=== PATIENT | male | born 1955 | race Asian ===

== ENCOUNTER 2020-03-16 20:56 | Inpatient (IN) | payer OTHER ==
[~2020-03-16] VITALS: Ht 167.6 cm; Wt 84.6 kg
[2020-03-16] MEDS: HumaLOG INSULIN (NovoLOG) PER UNIT SC SCH (21:00)
[2020-03-16] MEDS ORDERED: IBUPROFEN 600MG TAB PO ONE (21:45)
[2020-03-16 21:50] LABS: ABG BASE EXCESS -3.2 (-2.0-2.0); ABG HCO3 19.4 MEQ/L (22.0-26.0); ABG O2 SATURATION 94.5 % (95.0-99.0); ABG PARTIAL PRESSURE O2 68.4 mmHg (75.0-100.0); ABG STANDARD HCO3 21.8 MEQ/L (22.0-26.0); ABG TOTAL CO2 20.2 MEQ/L (23.0-31.0); ABG pH (ARTERIAL) 7.458 UNITS (7.350-7.450)
[2020-03-16 21:55] LABS: BASO % 0.2 % (0.0-1.0); HEMATOCRIT 41.9 % (42.0-52.0); HEMOGLOBIN 13.1 g/dl (13.5-17.5); LYMPH # 0.7 10^3/uL (1.5-5.0); LYMPH % 6.3 % (24.0-44.0); MEAN CORPUSCULAR HGB CONC 31.3 g/dl (32.0-36.5); MEAN CORPUSCULAR VOLUME 89.5 fl (80.0-96.0); MONO # 0.4 10^3/uL (0.0-0.8); MONO % 3.6 % (0.0-5.0); NEUTROPHILS # 10.6 10^3/uL (1.5-8.5); NEUTROPHILS % 89.2 % (36.0-66.0); PLATELET COUNT, AUTOMATED 368 10^3/uL (150-450); RED BLOOD COUNT 4.68 10^6/uL (4.30-6.10); WHITE BLOOD COUNT 11.8 10^3/uL (4.0-10.0)
[2020-03-16] MEDS ORDERED: ACET-897 PO (22:12)
--- NOTE | 2020-03-16 22:17 | REPVR ---
PROCEDURE INFORMATION: Exam: XR Chest, 1 View Exam date and time: 03/16/2020 9:42 PM Age: 64 years old Clinical indication: Cough and dyspnea; Additional info: Dyspnea/cough TECHNIQUE: Imaging protocol: XR of the chest Views: 1 view. COMPARISON: No relevant prior studies available. FINDINGS: Lungs: Hypoexpanded lungs with bibasilar atelectasis and suspected scattered infiltrate. Pleural space: Unremarkable. No pleural effusion. No pneumothorax. Heart/Mediastinum: Unremarkable. No cardiomegaly. Bones/joints: Unremarkable. IMPRESSION: Hypoexpanded lungs with bibasilar atelectasis and suspected scattered infiltrate. Electronically signed by: Adrian Kwong On 03/16/2020 22:17:55 PM
[2020-03-16 22:34] LABS: BLOOD UREA NITROGEN 15 MG/DL (7-18); CALCIUM LEVEL 9.5 MG/DL (8.8-10.2); CARBON DIOXIDE LEVEL 27 MEQ/L (21-32); CHLORIDE LEVEL 102 MEQ/L (98-107); GLOMERULAR FILTRATION RATE > 60.0 (>49); GLUCOSE, FASTING 157 MG/DL (70-100); POTASSIUM SERUM 4.2 MEQ/L (3.5-5.1); SODIUM LEVEL 134 MEQ/L (136-145)
[2020-03-16 22:35] LABS: ALBUMIN 3.1 GM/DL (3.2-5.2); ALT/SGPT 39 U/L (12-78); BILIRUBIN,DIRECT 0.2 MG/DL (0.0-0.2); BILIRUBIN,TOTAL 0.7 MG/DL (0.2-1.0); CK-MB VALUE MASS < 1.0 NG/ML (<3.6); CPK CREATINE PHOSPHOKINASE 88 U/L (39-308); FERRITIN 588 NG/ML (26-388); LDH LACTATE DEHYDROGENASE 324 U/L (87-241); MAGNESIUM LEVEL 2.2 MG/DL (1.8-2.4); MB/CK RELATIVE INDEX 1.14 (< OR =4); NT-PRO BNP 200 PG/ML (<125); THYROID STIMULATING HORMONE 0.788 uIU/ML (0.358-3.740); TOTAL PROTEIN 8.4 GM/DL (6.4-8.2); TROPONIN I < 0.02 NG/ML (< 0.10)
[2020-03-16] MEDS ORDERED: dexameTHASONE 20MG/5ML VIAL (J1100 PER 1MG) IV ONE (22:45)
[2020-03-17] MEDS ORDERED: DEXTROSE 50% 50 ML SYRINGE IV PRN (01:30)
[2020-03-17] MEDS ORDERED: GLUCOSE 4GM CHEW TABLET PO PRN (01:30)
[2020-03-17] MEDS ORDERED: GLUCAGON INJ 1MG VIAL SC PRN (01:30)
--- OUTSIDE RECORDS SUMMARY | 2020-03-17 01:32 | CCD ---
Author Author [facility] Address Unknown Phone Unavailable Support Name Relationship Address Phone LLOYD GARCIA Next Of Kin [address] [place], [place] [id number] Re-disclosure Warning The records that you are about to access may contain information from federally-assisted alcohol or drug abuse programs. If such information is present, then the following federally mandated warning applies: This information has been disclosed to you from records protected by federal confidentiality rules (42 CFR part 2). The federal rules prohibit you from making any further disclosure of this information unless further disclosure is expressly permitted by the written consent of the person to whom it pertains or as otherwise permitted by 42 CFR part 2. A general authorization for the release of medical or other information is NOT sufficient for this purpose. The Federal rules restrict any use of the information to criminally investigate or prosecute any alcohol or drug abuse patient.The records that you are about to access may contain highly sensitive health information, the redisclosure of which is protected by Article 27-F of the [facility] Public Health law. If you continue you may have access to information: Regarding HIV / AIDS; Provided by facilities licensed or operated by the [facility] Office of Mental Health; or Provided by the [facility] Office for People With Developmental Disabilities. If such information is present, then the following [facility] mandated warning applies: This information has been disclosed to you from confidential records which are protected by state law. State law prohibits you from making any further disclosure of this information without the specific written consent of the person to whom it pertains, or as otherwise permitted by law. Any unauthorized further disclosure in violation of state law may result in a fine or care home sentence or both. A general authorization for the release of medical or other information is NOT sufficient authorization for further disc losure. Insurance Providers Payer name Policy type / Coverage type Policy ID Covered green party ID Covered green party's relationship to batres Policy Batres Plan Information AYSHA [id number]
--- NOTE | 2020-03-17 01:53 | HPEPDOC ---
[facility] Medical History & Physical Date of Admission Mar 17, 2020 Date of Service: Mar 17, 2020 Other Provider No PCP yet Attending Physician: CUONG SAENZ MD History and Physical CHIEF COMPLAINT: SOB HISTORY OF PRESENT ILLNESS: Patient is a 64 year old male who presented to [facility] ED on 03/16/2020 with ~a 7 day history of fevers, cough, and progressively worsening shortness of breath. History is limited and aided by his son over the phone and through a manager online used in the emergency department. He continued to have persistent fevers in spite of tylenol use, his family had a home pulse oximeter that showed desaturations so he was tested at an urgent care today and it was positive for COVID so he was sent to the emergency department for further evaluation. While in the ED he was saturating well on room air, but desaturated to the mid 80s and became symptomatically short of breath and tachycardic with mild exertion (ambulation) so the decision was made to admit the patient for overnight monitoring and observation. 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 No tobacco use, alcohol use, or illicit drug use. FAMILY HISTORY: Brother with high cholesterol ALLERGIES: Please see below. REVIEW OF SYSTEMS: Constitutional: Denies chills, night sweats, or recent unexpected weight change HEENT: Denies Headaches, head trauma, No visual changes or eye pain, denies nose bleeds, or difficulty swallowing Cardiovascular: Denies chest pain, palpitations, or orthopnea Respiratory: Denies wheezing, admits to dry non-productive cough, SOB GI: Denies nausea, vomiting, abdominal pain, diarrhea or constipation : Denies pain with urination or frequency Musculoskeletal: Denies joint pain or swelling Neuro / Psych: Denies muscle weakness or sensory loss Skin: Denies skin rashes HOME MEDICATIONS: Please see below. PHYSICAL EXAMINATION: VITAL SIGNS: See below GENERAL: Well appearing male sitting upright in bed in no acute distress HEENT: NC, AT, EOMI, no scleral icterus, moist mucous membranes, no pharyngeal erythema. NECK: No cervical or supraclavicular lymphadenopathy. No JVD. CARDIOVASCULAR: RRR, normal S1 and S2. No murmurs, gallops, rubs. LUNGS: CTAB with full breath sounds, no wheezes, crackles, or rhonchi. ABDOMEN: Soft, non-tender, non-distended, bowel sounds present. No hepatosplenomegaly. No masses or eccymosis. No CVA tenderness. EXTREMITIES: No swelling or edema SKIN: No rashes or skin changes. NEUROLOGICAL: No focal or sensory deficits. CN II-XII grossly intact. PSYCHIATRIC: Normal mood and affect. LABORATORY DATA: See below. IMAGIN03/16/20 CXR: "Hypoexpanded lungs with bibasilar atelectasis and suspected scattered infiltrate. " MICROBIOLOGY: Please see below. ASSESSMENT/PLAN: Patient is a 64 year old male with a week long history of worsening SOB admitted with concern for hypoxia secondary to COVID pneumonia. #. COVID-19 Pneumonia -Patient with mild disease, will continue to monitor oxygen saturations and titrate per protocol, he is comfortable currently on room air, son updated of his condition. -Dexamethasone daily, decadron already given in ED. -Trending daily inflammatory markers. -Remdesivir not indicated at this stage in disease course, day 7-8 of illness. #. Hypoxia -Given his hypoxia earlier in his ED course with accompanying tachycardia, elevated D-dimer, and comorbid pneumonia, will obtain bilateral LE U/S, his tachycardia resolved once I had seen patient. #. Type 2 Diabetes -Patient states he is only on glipizide at home -Sliding scale insulin #. Hypertension -Patient/son states he is on Amlodipine 5 mg, will continue home med DVT prophylaxis: Half dose prophylactic lovenox Disposition: At least 2 midnights pending clinical improvement. Vital Signs Vital Signs Date Time Temp Pulse Resp B/P (MAP) Pulse Ox O2 Delivery O2 Flow Rate FiO2 03/17/20 01:16 92 18 137/77 (97) 93 Room Air 03/16/20 21:04 100.2 Laboratory Data Labs 24H Laboratory Tests 2 03/16/20 21:28: Immature Granulocyte % (Auto) 0.7, Neutrophils (%) (Auto) 89.2H, Lymphocytes (%) (Auto) 6.3L, Monocytes (%) (Auto) 3.6, Eosinophils (%) (Auto) 0.0, Basophils (%) (Auto) 0.2, Neutrophils # (Auto) 10.6H, Lymphocytes # (Auto) 0.7L, Monocytes # (Auto) 0.4, Eosinophils # (Auto) 0.0, Basophils # (Auto) 0.0, Nucleated Red Blood Cells % (auto) 0.0, Anion Gap 5L, Glomerular Filtration Rate > 60.0, Calcium Level 9.5, Magnesium Level 2.2, Ferritin 588H, Total Bilirubin 0.7, Direct Bilirubin 0.2, Aspartate Amino Transf (AST/SGOT) 31, Alanine Aminotransferase (ALT/SGPT) 39, Alkaline Phosphatase 125H, Lactate Dehydrogenase 324H, Total Creatine Kinase 88, Creatine Kinase MB < 1.0, Creatine Kinase MB Relative Index 1.14, Troponin I < 0.02, C-Reactive Protein, Quantitative 37.30H, PW-Xnq-T-Type Natriuretic Peptide 200H, Total Protein 8.4H, Albumin 3.1L, Albumin/Globulin Ratio 0.6, Thyroid Stimulating Hormone (TSH) 0.788 03/16/20 21:34: Blood Gas Bicarbonate Standard 21.8L, Arterial Blood pH 7.458H, Arterial Blood Partial Pressure CO2 28.0L, Arterial Blood Partial Pressure O2 68.4L, Arterial Blood Total CO2 20.2L, Arterial Blood HCO3 19.4L, Arterial Blood Base Excess - 3.2L, Arterial Blood Oxygen Saturation 94.5L 03/16/20 21:46: D-Dimer, Quantitative 1898.18H, Lactic Acid Level 1.3 CBC/BMP Laboratory Tests 03/16/20 21:28 Microbiology Microbiology 03/16/20 Blood Culture, Received Pending 03/16/20 Blood Culture, Received Pending Home Medications Scheduled PRN Acetaminophen (Tylenol Extra Strength) 500 Mg Tablet, 500 MG PO Q6H PRN for PAIN / FEVER Allergies Coded Allergies: No Known Allergies (Verified Allergy, Unknown, 03/16/20) GME ATTESTATION GME ATTESTATION My faculty preceptor for this patient encounter was physically present during the encounter and was fully available. All aspects of the patient interview, examination, medical decision making process, and medical care plan development were reviewed and approved by the faculty preceptor. The faculty preceptor is aware and concurs with the plan as stated in the body of this note and will attest to such by his/her cosignature. CAROL BETH DO Mar 17, 2020 01:53
--- NOTE | 2020-03-17 03:03 | REPVR ---
PROCEDURE INFORMATION: Exam: US Duplex Lower Extremity Veins, Bilateral Exam date and time: 03/17/2020 2:51 AM Age: 64 years old Clinical indication: Other: SOB; Additional info: Tachycardia, SOB, dvt rule out TECHNIQUE: Imaging protocol: Real-time duplex ultrasound of the extremities with 2-D morales scale, color Doppler flow and spectral waveform analysis with image documentation. Complete exam focused on the bilateral lower extremity veins. COMPARISON: No relevant prior studies available. FINDINGS: Right deep veins: Unremarkable. The common femoral, femoral, proximal profunda femoral and popliteal veins are patent without thrombus. Normal Doppler waveforms. Normal compressibility and/or augmentation response. Right superficial veins: Saphenofemoral junction is patent without thrombus. Left deep veins: Unremarkable. The common femoral, femoral, proximal profunda femoral and popliteal veins are patent without thrombus. Normal Doppler waveforms. Normal compressibility and/or augmentation response. Left superficial veins: Saphenofemoral junction is patent without thrombus. Soft tissues: Unremarkable. IMPRESSION: No evidence of deep vein thrombosis. Electronically signed by: Adrian Kwong On 03/17/2020 03:03:21 AM
[2020-03-17 06:03] LABS: ABG BASE EXCESS -0.3 (-2.0-2.0); ABG HCO3 24.2 MEQ/L (22.0-26.0); ABG O2 SATURATION 95.8 % (95.0-99.0); ABG PARTIAL PRESSURE O2 78.4 mmHg (75.0-100.0); ABG STANDARD HCO3 24.2 MEQ/L (22.0-26.0); ABG TOTAL CO2 25.4 MEQ/L (23.0-31.0)
[2020-03-17] MEDS ORDERED: cefTRIAXone SOD 1 GM in D5W MINI-BAG PLUS 50 ML IV ONE (08:00)
[2020-03-17] MEDS ORDERED: DOXYCYCLINE HYCLATE 100 MG in D5W MINI-BAG PLUS 100 ML IV ONE (09:00)
--- NOTE | 2020-03-17 09:04 | ECGEPIP ---
[facility] - ED Test Date: 2020-03-16 Pat Name: LEXI GARCIA Department: Room: [facility] Gender: Male Performing Artist: JORY : 1955 Requested By: BENSON Chaudhry Order Number: [id number] Reading MD: Elza Rubin Measurements Intervals [place] Rate: 117 P: 26 UT: 116 QRS: -13 QRSD: 91 T: 7 QT: 340 QTc: 476 Interpretive Statements SINUS TACHYCARDIA WITH SHORT UT INTERVAL VOLTAGE CRITERIA FOR LVH NONSPECIFIC T-WAVE ABNORMALITY No prior Electronically Signed on 03-17-2020 9:04:09 EST by Elza Rubin
[2020-03-17] MEDS: dexameTHASONE 4 MG/ML 1ML VIAL (J1100 PER 1MG) IV SCH (09:38)
[2020-03-17] MEDS: HumaLOG INSULIN (NovoLOG) PER UNIT SC SCH ×4 (09:40→20:46)
[2020-03-17] MEDS: amLODIPine 5 MG TAB PO SCH (09:40)
[2020-03-17] MEDS: ENOXAPARIN 40MG/0.4ML SYRINGE (J1650 PER 10MG) SC SCH ×2 (09:41→21:30)
[2020-03-17 10:36] LABS: BASO % 0.2 % (0.0-1.0); HEMATOCRIT 40.6 % (42.0-52.0); HEMOGLOBIN 12.6 g/dl (13.5-17.5); LYMPH # 0.5 10^3/uL (1.5-5.0); LYMPH % 5.2 % (24.0-44.0); MEAN CORPUSCULAR HEMOGLOBIN 27.8 pg (27.0-33.0); MEAN CORPUSCULAR VOLUME 89.6 fl (80.0-96.0); MONO # 0.1 10^3/uL (0.0-0.8); MONO % 0.9 % (0.0-5.0); NEUTROPHILS # 9.4 10^3/uL (1.5-8.5); NEUTROPHILS % 93.1 % (36.0-66.0); PLATELET COUNT, AUTOMATED 368 10^3/uL (150-450); RED BLOOD COUNT 4.53 10^6/uL (4.30-6.10); WHITE BLOOD COUNT 10.1 10^3/uL (4.0-10.0)
[2020-03-17 10:48] LABS: INR 1.09; PROTHROMBIN TIME 14.3 SECONDS (12.5-14.3)
[2020-03-17 10:50] LABS: PARTIAL THROMBOPLASTIN TIME 45.4 SECONDS (24.2-38.5)
[2020-03-17 11:34] LABS: ALBUMIN 2.7 GM/DL (3.2-5.2); ALT/SGPT 36 U/L (12-78); BILIRUBIN,DIRECT 0.2 MG/DL (0.0-0.2); BILIRUBIN,TOTAL 0.8 MG/DL (0.2-1.0); BLOOD UREA NITROGEN 19 MG/DL (7-18); CALCIUM LEVEL 8.9 MG/DL (8.8-10.2); CARBON DIOXIDE LEVEL 26 MEQ/L (21-32); CHLORIDE LEVEL 102 MEQ/L (98-107); CREATININE FOR GFR 0.94 MG/DL (0.70-1.30); FERRITIN 631 NG/ML (26-388); GLOMERULAR FILTRATION RATE > 60.0 (>49); GLUCOSE, FASTING 341 MG/DL (70-100); NT-PRO BNP 129 PG/ML (<125); POTASSIUM SERUM 4.6 MEQ/L (3.5-5.1); SODIUM LEVEL 134 MEQ/L (136-145); TOTAL PROTEIN 6.7 GM/DL (6.4-8.2)
[2020-03-17 13:00] VITALS: O2SAT 87
[2020-03-17 13:11] VITALS: BP 139/70
[2020-03-17 14:28] LABS: TROPONIN I < 0.02 NG/ML (< 0.10)
--- NOTE | 2020-03-17 15:19 | IPNPDOC ---
Text Note Date of Service The patient was seen on 03/17/20. NOTE Subjective: Patient is a 62-year-old male with a PMHx DM2, HTN who presented to the ER with fevers / cough / progressive SOB for 7 days. Patient comes to urgent care where he had tested Positive on 03/16/2020. Patient was noted to be hypoxic, was sent to the emergency room for further evaluation. Patient was admitted to the hospital service for further evaluation and treatment. Patient was seen and examined at the bedside. Patient reports that he feels relatively better than he did yesterday. Denies any chest pain or palpitations. Reports a mild cough. Denies any nausea, vomiting, abdominal pain, diarrhea, or urinary discomfort. Patient speaks Guamanian and Gujarati; I have conversed with him in both languages. Objective: Vitals (See below) General: Lying in bed, no acute distress, comfortable, AAOx3 HEENT: NC, AT CVS: RRR, +S1S2 Lungs: Fair air entry b/l, -w/r/r Abdomen: Soft, ND, NT Extremities: - Edema, - Calf tenderness Imaging: CXR 03/16: Hypoexpanded lungs with bibasilar atelectasis and suspected scattered infiltrate. Duplex US 03/16: No evidence of deep vein thrombosis. Assessment and plan: Acute hypoxic respiratory failure - 2/2 COVID-19 Pneumonia - Currently patient reports that he feels better than he did yesterday - Saturating well on 1 L nasal cannula oxygen - Inflammatory markers noted to be elevated, however, have been trending down - Imaging noted above - Will continue with dexamethasone (Day #2) - Will start antibiotics with ceftriaxone and doxycycline (Day#1); will trend pro-calcitonin DM2 - c/w ISS HTN - c/w Amlodipine GI prophylaxis - c/w DVT prophylaxis - c/w Lovenox weight-based prophylactic dosing Disposition: - Called and discussed case with his son Alexandra Garcia Osmani ECHAVARRIA I+O Osmani ECHAVARRIA I+O Laboratory Tests 03/16/20 21:28 03/17/20 10:20 Vital Signs Date Time Temp Pulse Resp B/P (MAP) Pulse Ox O2 Delivery O2 Flow Rate FiO2 03/17/20 13:11 97.7 90 17 139/70 (93) 91 Room Air 03/17/20 09:01 2.0 RACHEL GARCIA MD Mar 17, 2020 15:19
[2020-03-17 16:00] VITALS: O2SAT 93
[2020-03-17 20:47] VITALS: BP 132/65
[2020-03-17] MEDS ORDERED: ACETAMINOPHEN TAB 650MG DOSE (2X325MG) PO PRN (21:15)
[2020-03-17] MEDS: DOXYCYCLINE HYCLATE 100 MG in D5W MINI-BAG PLUS 100 ML IV SCH (21:30)
[2020-03-18 04:00] VITALS: BP 117/56
[2020-03-18 07:59] LABS: BASO % 0.2 % (0.0-1.0); HEMATOCRIT 39.9 % (42.0-52.0); LYMPH # 0.7 10^3/uL (1.5-5.0); LYMPH % 3.5 % (24.0-44.0); MEAN CORPUSCULAR HGB CONC 32.6 g/dl (32.0-36.5); MEAN CORPUSCULAR VOLUME 89.1 fl (80.0-96.0); MONO # 0.8 10^3/uL (0.0-0.8); MONO % 3.8 % (0.0-5.0); NEUTROPHILS # 18.1 10^3/uL (1.5-8.5); NEUTROPHILS % 91.5 % (36.0-66.0); PLATELET COUNT, AUTOMATED 439 10^3/uL (150-450); RED BLOOD COUNT 4.48 10^6/uL (4.30-6.10); WHITE BLOOD COUNT 19.8 10^3/uL (4.0-10.0)
[2020-03-18 08:00] VITALS: BP 119/61; O2SAT 92
[2020-03-18 08:13] LABS: INR 1.07; PROTHROMBIN TIME 14.1 SECONDS (12.5-14.3)
[2020-03-18 08:14] LABS: PARTIAL THROMBOPLASTIN TIME 41.2 SECONDS (24.2-38.5)
[2020-03-18 08:16] LABS: D-DIMER QUANT 770.17 ng/ml (<500)
[2020-03-18 08:29] LABS: ALT/SGPT 42 U/L (12-78); BLOOD UREA NITROGEN 24 MG/DL (7-18); CALCIUM LEVEL 8.9 MG/DL (8.8-10.2); CARBON DIOXIDE LEVEL 26 MEQ/L (21-32); CHLORIDE LEVEL 102 MEQ/L (98-107); CREATININE FOR GFR 0.85 MG/DL (0.70-1.30); GLOMERULAR FILTRATION RATE > 60.0 (>49); GLUCOSE, FASTING 227 MG/DL (70-100); POTASSIUM SERUM 4.9 MEQ/L (3.5-5.1); SODIUM LEVEL 135 MEQ/L (136-145)
[2020-03-18 08:30] LABS: ALBUMIN 2.7 GM/DL (3.2-5.2); BILIRUBIN,DIRECT 0.2 MG/DL (0.0-0.2); BILIRUBIN,TOTAL 0.5 MG/DL (0.2-1.0); FERRITIN 665 NG/ML (26-388); NT-PRO BNP 201 PG/ML (<125); TOTAL PROTEIN 6.4 GM/DL (6.4-8.2)
[2020-03-18] MEDS ORDERED: FLUBLOK(EGG FREE)(QUAD)INFLUENZA VACC 0.5ML SYRINGE 18YRS & OLDER IM ONE (09:00)
[2020-03-18] MEDS: HumaLOG INSULIN (NovoLOG) PER UNIT SC SCH ×4 (09:16→21:00)
[2020-03-18] MEDS: ENOXAPARIN 40MG/0.4ML SYRINGE (J1650 PER 10MG) SC SCH ×2 (09:19→21:09)
[2020-03-18] MEDS: dexameTHASONE 4 MG/ML 1ML VIAL (J1100 PER 1MG) IV SCH (09:19)
[2020-03-18] MEDS: cefTRIAXone SOD 1 GM in D5W MINI-BAG PLUS 50 ML IV SCH (09:20)
[2020-03-18] MEDS: amLODIPine 5 MG TAB PO SCH (09:21)
[2020-03-18] MEDS: DOXYCYCLINE HYCLATE 100 MG in D5W MINI-BAG PLUS 100 ML IV SCH ×2 (09:22→21:10)
--- NOTE | 2020-03-18 11:54 | IPNPDOC ---
Text Note Date of Service The patient was seen on 03/18/20. NOTE Subjective: Patient is a 62-year-old male with a PMHx DM2, HTN who presented to the ER with fevers / cough / progressive SOB for 7 days. Patient comes to urgent care where he had tested Positive on 03/16/2020. Patient was noted to be hypoxic, was sent to the emergency room for further evaluation. Patient was admitted to the hospital service for further evaluation and treatment. Patient was seen and examined at the bedside. Patient reports that his night was uneventful. Currently patient is on 2 L nasal cannula oxygen. He denies any chest pain. Does report a mild cough. Denies any nausea, vomiting, abdominal pain, diarrhea, or urinary discomfort. Objective: Vitals (See below) General: Lying in bed, no acute distress, comfortable, awake, alert and oriented 3 HEENT: NC, AT CVS: +S1S2 Lungs: Fair air entry b/l, no appreciable wheezing, rhonchi or rales Abdomen: Soft, nondistended and nontender Extremities: Lower extremities are without any edema, - Calf tenderness Imaging: CXR 03/16: Hypoexpanded lungs with bibasilar atelectasis and suspected scattered infiltrate. Duplex US 03/16: No evidence of deep vein thrombosis. Assessment and plan: Acute hypoxic respiratory failure - 2/2 COVID-19 Pneumonia - Patient reports a mild cough - Patient is currently on 2 L of nasal cannula oxygen - Inflammatory markers has been trending down - Imaging noted above - c/w dexamethasone (Day #3) - c/w antibiotics with ceftriaxone and doxycycline (Day#2); will trend pro- calcitonin DM2 - c/w ISS HTN - c/w Amlodipine GI prophylaxis - c/w DVT prophylaxis - c/w Lovenox weight-based prophylactic dosing Disposition: - Called and updated son Alexandra Garcia VS,Osmani, I+O VS, Samuelbone, I+O Laboratory Tests 03/18/20 07:00 Vital Signs Date Time Temp Pulse Resp B/P (MAP) Pulse Ox O2 Delivery O2 Flow Rate FiO2 03/18/20 09:21 104 121/66 03/18/20 08:00 23 94 Nasal Cannula 2.0 03/18/20 04:00 99.8 I&O- Last 24 Hours up to 6 AM 03/18/20 05:59 Intake Total 500 ml Output Total 200 ml Balance 300 ml RACHEL GARCIA MD Mar 18, 2020 11:54
[2020-03-18 12:00] VITALS: BP 126/69; O2SAT 92
[2020-03-18 15:08] LABS: MYCOPLASMA PNEUMONIAE IgG <100 U/mL (0-99); MYCOPLASMA PNEUMONIAE IgM <770 U/mL (0-769)
[2020-03-18 16:00] VITALS: O2SAT 93
[2020-03-18 20:00] VITALS: O2SAT 93
[2020-03-18 21:03] VITALS: BP 129/72
[2020-03-19] VITALS (7 sets, daily range): BP systolic 121–140; BP diastolic 70–75; O2SAT 92
[2020-03-19 06:34] LABS: BASO # 0.1 10^3/uL (0.0-0.2); BASO % 0.4 % (0.0-1.0); HEMATOCRIT 39.4 % (42.0-52.0); HEMOGLOBIN 12.5 g/dl (13.5-17.5); LYMPH % 6.5 % (24.0-44.0); MEAN CORPUSCULAR HEMOGLOBIN 27.9 pg (27.0-33.0); MEAN CORPUSCULAR HGB CONC 31.7 g/dl (32.0-36.5); MEAN CORPUSCULAR VOLUME 87.9 fl (80.0-96.0); MONO # 0.9 10^3/uL (0.0-0.8); MONO % 5.4 % (0.0-5.0); NEUTROPHILS # 13.5 10^3/uL (1.5-8.5); NEUTROPHILS % 84.6 % (36.0-66.0); PLATELET COUNT, AUTOMATED 467 10^3/uL (150-450); RED BLOOD COUNT 4.48 10^6/uL (4.30-6.10)
[2020-03-19 07:06] LABS: ALBUMIN 2.6 GM/DL (3.2-5.2); ALT/SGPT 41 U/L (12-78); BILIRUBIN,DIRECT 0.1 MG/DL (0.0-0.2); BILIRUBIN,TOTAL 0.5 MG/DL (0.2-1.0); BLOOD UREA NITROGEN 20 MG/DL (7-18); CALCIUM LEVEL 8.7 MG/DL (8.8-10.2); CARBON DIOXIDE LEVEL 26 MEQ/L (21-32); CHLORIDE LEVEL 100 MEQ/L (98-107); CREATININE FOR GFR 0.77 MG/DL (0.70-1.30); FERRITIN 586 NG/ML (26-388); GLOMERULAR FILTRATION RATE > 60.0 (>49); GLUCOSE, FASTING 197 MG/DL (70-100); NT-PRO BNP 256 PG/ML (<125); POTASSIUM SERUM 4.7 MEQ/L (3.5-5.1); SODIUM LEVEL 134 MEQ/L (136-145); TOTAL PROTEIN 6.6 GM/DL (6.4-8.2)
[2020-03-19 07:14] LABS: INR 1.05
[2020-03-19 07:15] LABS: PARTIAL THROMBOPLASTIN TIME 38.4 SECONDS (24.2-38.5)
[2020-03-19 07:18] LABS: D-DIMER QUANT 702.42 ng/ml (<500)
[2020-03-19] MEDS: cefTRIAXone SOD 1 GM in D5W MINI-BAG PLUS 50 ML IV SCH (09:15)
[2020-03-19] MEDS: dexameTHASONE 4 MG/ML 1ML VIAL (J1100 PER 1MG) IV SCH (09:15)
[2020-03-19] MEDS: HumaLOG INSULIN (NovoLOG) PER UNIT SC SCH ×4 (09:16→20:33)
[2020-03-19] MEDS: ENOXAPARIN 40MG/0.4ML SYRINGE (J1650 PER 10MG) SC SCH ×2 (09:17→20:46)
[2020-03-19] MEDS: amLODIPine 5 MG TAB PO SCH (09:19)
[2020-03-19] MEDS: DOXYCYCLINE HYCLATE 100 MG in D5W MINI-BAG PLUS 100 ML IV SCH ×2 (10:00→20:46)
--- NOTE | 2020-03-19 12:59 | IPNPDOC ---
Text Note Date of Service The patient was seen on 03/19/20. NOTE Subjective: Patient is a 62-year-old male with a PMHx DM2, HTN who presented to the ER with fevers / cough / progressive SOB for 7 days. Patient comes to urgent care where he had tested Positive on 03/16/2020. Patient was noted to be hypoxic, was sent to the emergency room for further evaluation. Patient was admitted to the hospital service for further evaluation and treatment. Patient was seen and examined at the bedside. Patient was seen on 4 L of nasal oxygen. He'll be working with physical therapy today. Reports a mild cough, but does not experience any significant shortness of breath. He denies any nausea, vomiting, abdominal pain, diarrhea, or urinary discomfort. I have provided patient with an incentive spirometer and shown him how to use it. Objective: Vitals (See below) General: Patient is sitting up in bed, appears to be comfortable, awake, alert and oriented 3 HEENT: NC, AT CVS: +S1S2 Lungs: Air entry appears to be fair bilaterally without any evidence of rhonchi, crackles or wheezing Abdomen: Abdomen remains soft without any distention or tenderness Extremities: No evidence of lower tremors edema Imaging: CXR 03/16: Hypoexpanded lungs with bibasilar atelectasis and suspected scattered infiltrate. Duplex US 03/16: No evidence of deep vein thrombosis. Assessment and plan: Acute hypoxic respiratory failure - 2/2 COVID-19 Pneumonia - Patient reports a mild cough - Patient is currently on 4 L of nasal cannula oxygen, however was able to be titrated down to 2 L after working with physical therapy - Inflammatory markers continue to improve - Imaging noted above - c/w dexamethasone (Day #4) - c/w antibiotics with ceftriaxone and doxycycline (Day#3); will calcitonin pending - Continue with physical therapy DM2 - c/w ISS HTN - c/w Amlodipine DVT prophylaxis - c/w Lovenox weight-based prophylactic dosing Disposition: - Called and updated son Alexandra Garcia VS,Osmani, I+O VSOsmani, I+O Laboratory Tests 03/19/20 05:48 Vital Signs Date Time Temp Pulse Resp B/P (MAP) Pulse Ox O2 Delivery O2 Flow Rate FiO2 03/19/20 12:32 92 Nasal Cannula 2.0 03/19/20 09:19 98.4 78 20 140/70 (93) I&O- Last 24 Hours up to 6 AM 03/19/20 06:00 Intake Total 960 ml Output Total 0 ml Balance 960 ml RACHEL GARCAI MD Mar 19, 2020 12:59
[2020-03-20] VITALS (9 sets, daily range): BP systolic 123–143; BP diastolic 66–78; O2SAT 55–94
[2020-03-20 06:55] LABS: HEMOGLOBIN 13.5 g/dl (13.5-17.5); MEAN CORPUSCULAR HEMOGLOBIN 28.7 pg (27.0-33.0); MEAN CORPUSCULAR HGB CONC 32.1 g/dl (32.0-36.5); MEAN CORPUSCULAR VOLUME 89.2 fl (80.0-96.0); PLATELET COUNT, AUTOMATED 505 10^3/uL (150-450); RED BLOOD COUNT 4.71 10^6/uL (4.30-6.10); WHITE BLOOD COUNT 11.9 10^3/uL (4.0-10.0)
[2020-03-20 07:14] LABS: INR 1.05; PROTHROMBIN TIME 13.9 SECONDS (12.5-14.3)
[2020-03-20 07:15] LABS: PARTIAL THROMBOPLASTIN TIME 35.3 SECONDS (24.2-38.5)
[2020-03-20 07:24] LABS: ALBUMIN 2.6 GM/DL (3.2-5.2); ALT/SGPT 50 U/L (12-78); BILIRUBIN,DIRECT 0.2 MG/DL (0.0-0.2); BILIRUBIN,TOTAL 0.5 MG/DL (0.2-1.0); BLOOD UREA NITROGEN 22 MG/DL (7-18); C REACTIVE PROTEIN QUANTITATIV 6.37 MG/DL (0.00-0.30); CARBON DIOXIDE LEVEL 30 MEQ/L (21-32); CHLORIDE LEVEL 98 MEQ/L (98-107); CREATININE FOR GFR 0.86 MG/DL (0.70-1.30); FERRITIN 604 NG/ML (26-388); GLOMERULAR FILTRATION RATE > 60.0 (>49); GLUCOSE, FASTING 220 MG/DL (70-100); NT-PRO BNP 126 PG/ML (<125); POTASSIUM SERUM 4.7 MEQ/L (3.5-5.1); SODIUM LEVEL 134 MEQ/L (136-145); TOTAL PROTEIN 6.7 GM/DL (6.4-8.2)
[2020-03-20 07:29] LABS: D-DIMER QUANT 798.17 ng/ml (<500)
[2020-03-20 08:38] LABS: ATYPICAL LYMPH 1 % (0-5); LYMPHOCYTES 7 % (16-44); METAMYELOCYTES 1 % (0-0); MONOCYTES 5 % (0-5); MYELOCYTES 3 % (0-0); NEUTROPHILS 82 % (28-66); PLATELET ESTIMATE INCREASED (NORMAL)
[2020-03-20 08:39] LABS: ANISOCYTOSIS 1+
[2020-03-20] MEDS: cefTRIAXone SOD 1 GM in D5W MINI-BAG PLUS 50 ML IV SCH (09:18)
[2020-03-20] MEDS: HumaLOG INSULIN (NovoLOG) PER UNIT SC SCH ×4 (09:22→21:00)
[2020-03-20] MEDS: DOXYCYCLINE HYCLATE 100 MG in D5W MINI-BAG PLUS 100 ML IV SCH (09:22)
[2020-03-20] MEDS: ENOXAPARIN 40MG/0.4ML SYRINGE (J1650 PER 10MG) SC SCH ×2 (09:22→21:04)
[2020-03-20] MEDS: amLODIPine 5 MG TAB PO SCH (09:24)
--- NOTE | 2020-03-20 15:58 | IPNPDOC ---
Text Note Date of Service The patient was seen on 03/20/20. NOTE Subjective: Patient is a 62-year-old male with a PMHx DM2, HTN who presented to the ER with fevers / cough / progressive SOB for 7 days. Patient comes to urgent care where he had tested Positive on 03/16/2020. Patient was noted to be hypoxic, was sent to the emergency room for further evaluation. Patient was admitted to the hospital service for further evaluation and treatment. Patient was seen and examined at the bedside. Currently patient appears to be doing well. He is currently on 1 L nasal cannula oxygen. He denies any chest pain, palpitations, still reports a mild nonproductive cough. Reports no significant shortness of breath, however, does experience shortness of breath with exertion. He denies any nausea, vomiting, abdominal pain, diarrhea, or urinary discomfort. Objective: Vitals (See below) General: Patient is sitting up in bed, appears to be comfortable without any distress, is oriented to person, place and time HEENT: NC, AT CVS: +S1S2 Lungs: Appears to have fair air entry bilaterally without any auscultated crackles, wheezing or rhonchi Abdomen: Again, his abdomen remains soft without distention or tenderness Extremities: No edema of lower extremities Imaging: CXR 03/16: Hypoexpanded lungs with bibasilar atelectasis and suspected scattered infiltrate. Duplex US 03/16: No evidence of deep vein thrombosis. Assessment and plan: Acute hypoxic respiratory failure - 2/2 COVID-19 Pneumonia - Patient reports a mild nonproductive cough and improvement of his breathing - Supplemental oxygen requirement has been improving over last 24 hours - Inflammatory markers have been down trending - Imaging noted above - c/w dexamethasone (Day #5) - c/w antibiotics with ceftriaxone and doxycycline (Day#4); procalcitonin improving - Continue with physical therapy DM2 - c/w ISS HTN - c/w Amlodipine DVT prophylaxis - c/w Lovenox weight-based prophylactic dosing Disposition: - c/w PT and OT - Anticipate DC within 24 hours VS,Fishbone, I+O VS, Fishbone, I+O Laboratory Tests 03/20/20 06:02 Vital Signs Date Time Temp Pulse Resp B/P (MAP) Pulse Ox O2 Delivery O2 Flow Rate FiO2 03/20/20 15:49 97.2 18 143/78 (99) 91 03/20/20 12:00 Nasal Cannula 1.0 03/20/20 09:24 90 I&O- Last 24 Hours up to 6 AM 03/20/20 06:00 Intake Total 1350 ml Output Total 0 ml Balance 1350 ml RACHEL GARCIA MD Mar 20, 2020 15:58
[2020-03-20] MEDS: DOXYCYCLINE HYCLATE 100MG TABLET PO SCH (21:04)
[2020-03-21 05:00] VITALS: BP 124/72
[2020-03-21 07:46] LABS: HEMATOCRIT 42.4 % (42.0-52.0); HEMOGLOBIN 13.4 g/dl (13.5-17.5); MEAN CORPUSCULAR HEMOGLOBIN 28.5 pg (27.0-33.0); MEAN CORPUSCULAR HGB CONC 31.6 g/dl (32.0-36.5); PLATELET COUNT, AUTOMATED 511 10^3/uL (150-450); RED BLOOD COUNT 4.71 10^6/uL (4.30-6.10); WHITE BLOOD COUNT 10.9 10^3/uL (4.0-10.0)
[2020-03-21 08:00] VITALS: O2SAT 95
[2020-03-21 08:13] LABS: INR 1.03; PROTHROMBIN TIME 13.8 SECONDS (12.5-14.3)
[2020-03-21 08:14] LABS: PARTIAL THROMBOPLASTIN TIME 34.7 SECONDS (24.2-38.5)
[2020-03-21 08:17] LABS: D-DIMER QUANT 956.77 ng/ml (<500)
[2020-03-21 08:22] LABS: ALBUMIN 2.5 GM/DL (3.2-5.2); ALT/SGPT 77 U/L (12-78); BILIRUBIN,DIRECT 0.2 MG/DL (0.0-0.2); BILIRUBIN,TOTAL 0.4 MG/DL (0.2-1.0); BLOOD UREA NITROGEN 23 MG/DL (7-18); C REACTIVE PROTEIN QUANTITATIV 3.64 MG/DL (0.00-0.30); CALCIUM LEVEL 8.6 MG/DL (8.8-10.2); CARBON DIOXIDE LEVEL 31 MEQ/L (21-32); CHLORIDE LEVEL 97 MEQ/L (98-107); CREATININE FOR GFR 0.88 MG/DL (0.70-1.30); FERRITIN 543 NG/ML (26-388); GLOMERULAR FILTRATION RATE > 60.0 (>49); GLUCOSE, FASTING 249 MG/DL (70-100); NT-PRO BNP 51 PG/ML (<125); POTASSIUM SERUM 4.6 MEQ/L (3.5-5.1); SODIUM LEVEL 133 MEQ/L (136-145); TOTAL PROTEIN 6.2 GM/DL (6.4-8.2)
[2020-03-21] MEDS ORDERED: CEFDINIR 300 MG CAP (OMNICEF) PO SCH (09:00)
[2020-03-21 09:27] LABS: ATYPICAL LYMPH 1 % (0-5); EOSINOPHILS 3 % (0-3); LYMPHOCYTES 17 % (16-44); MONOCYTES 4 % (0-5); MYELOCYTES 1 % (0-0); NEUTROPHILS 72 % (28-66)
[2020-03-21 09:28] LABS: METAMYELOCYTES 1 % (0-0); PLATELET ESTIMATE INCREASED (NORMAL)
[2020-03-21] MEDS: DOXYCYCLINE HYCLATE 100MG TABLET PO SCH (09:42)
[2020-03-21] MEDS: HumaLOG INSULIN (NovoLOG) PER UNIT SC SCH ×2 (09:43→12:34)
[2020-03-21 09:46] VITALS: BP 126/67
[2020-03-21] MEDS: ENOXAPARIN 40MG/0.4ML SYRINGE (J1650 PER 10MG) SC SCH (09:46)
[2020-03-21] MEDS: amLODIPine 5 MG TAB PO SCH (09:46)
[2020-03-21 11:39] VITALS: BP 129/67
[2020-03-21 12:00] VITALS: O2SAT 90
[2020-03-21] MEDS ORDERED: DOXY100T PO ×3 (12:22→16:26)
[2020-03-21] MEDS ORDERED: CEFD300CAP PO ×3 (12:22→16:26)
[2020-03-21] MEDS ORDERED: PRED10TA2 PO ×3 (12:22→16:26)
[2020-03-21] MEDS ORDERED: GLUC1TES2 XX ×2 (13:38→16:26)
[2020-03-21] MEDS ORDERED: LANC30MI XX ×2 (13:38→16:26)
[2020-03-21] MEDS ORDERED: BLOOKIT21 XX ×2 (13:38→16:26)
[2020-03-21] MEDS ORDERED: METF-839 PO ×2 (13:38→16:26)
[2020-03-21] MEDS ORDERED: AMLO1TAB24 PO ×2 (13:38→16:26)
[2020-03-21] MEDS ORDERED: ALCOPAD25 TOP ×2 (13:38→16:26)
--- NOTE | 2020-03-21 13:41 | DS.PDOC ---
Discharge Summary General Date of Admission Mar 17, 2020 at 00:44 Date of Discharge 03/21/2020 Discharge Summary PROCEDURES PERFORMED DURING STAY: [None]. ADMITTING DIAGNOSES / DISCHARGE DIAGNOSES: Acute hypoxic respiratory failure - 2/2 COVID-19 Pneumonia DM2 HTN DVT prophylaxis COMPLICATIONS/CHIEF COMPLAINT: Shortness of breath HISTORY OF PRESENT ILLNESS: Patient is a 62-year-old male with a PMHx DM2, HTN who presented to the ER with fevers / cough / progressive SOB for 7 days. Patient comes to urgent care where he had tested Positive on 03/16/2020. Patient was noted to be hypoxic, was sent to the emergency room for further evaluation. Patient was admitted to the hospital service for further evaluation and treatment. HOSPITAL COURSE: Acute hypoxic respiratory failure - 2/2 COVID-19 Pneumonia - Patient reports that his breathing is doing better without any significant cough - Patient has been able to be titrated off of oxygen while at rest - Upon ambulation to bathroom, his pulse oximetry was noted to be <86% on room air - patient remained asymptomatic and recovered with rest - Inflammatory markers continue to improve - Imaging noted above - s/p Dexamethasone; Will start Prednisone taper on discharge - c/w antibiotics (Day#5); Will provide Cefdinir / Doxycycline on discharge; P rocalcitonin trending down - Cleared physical therapy DM2 - c/w ISS while inpatient - Will start Metformin on discharge HTN - BP well controlled - c/w Amlodipine on discharge DVT prophylaxis - c/w Lovenox weight-based prophylactic dosing DISCHARGE MEDICATIONS: Please see below. ALLERGIES: Please see below. PHYSICAL EXAMINATION ON DISCHARGE: Vitals (See below) General: Patient is sitting up in bed, appears to be comfortable, does not appear to be in any distress, is awake, alert and oriented to person, place and time HEENT: NC, AT CVS: +S1S2 Lungs: Air entry is fair bilaterally without any wheezing, crackles or rhonchi on auscultation Abdomen: Abdomen again, remains soft, no appreciable tenderness or distention Extremities: Lower extremities appear to be free of edema LABORATORY DATA: Please see below. IMAGING: CXR 03/16: Hypoexpanded lungs with bibasilar atelectasis and suspected scattered infiltrate. Duplex US 03/16: No evidence of deep vein thrombosis. ACTIVITY: [As tolerated]. DISCHARGE PLAN: Follow-up with primary care provider within the next 7 days; Dr. Sophie Garcia Remain compliant with treatment plan and medications Return to the ER if you experience any problems DISPOSITION: Home DISCHARGE CONDITION: [Stable]. TIME SPENT ON DISCHARGE: 35 minutes. Vital Signs/I&Os Vital Signs Date Time Temp Pulse Resp B/P (MAP) Pulse Ox O2 Delivery O2 Flow Rate FiO2 03/21/20 11:39 97.8 97 17 129/67 (87) 93 Nasal Cannula 0.0 I&O- Last 24 Hours up to 6 AM 03/21/20 06:00 Intake Total 1020 ml Output Total 0 ml Balance 1020 ml Laboratory Data Labs 24H Laboratory Tests 2 03/20/20 17:36: Bedside Glucose (Misc Panel) 238H 03/20/20 21:00: Bedside Glucose (Misc Panel) 195H 03/21/20 06:43: Immature Granulocyte % (Auto) , Neutrophils (%) (Auto) , Nucleated Red Blood Cells % (auto) 0.0, Neutrophils 72H, Band Neutrophils 1, Lymphocytes (Manual) 17, Monocytes (Manual) 4, Eosinophils (Manual) 3, Metamyelocytes 1H, Myelocytes 1H, Atypical Lymphocytes 1, Platelet Estimate INCREASED, Prothrombin Time 13.8, Prothromb Time International Ratio 1.03, Activated Partial Thromboplast Time 34.7, Fibrinogen 704H, D-Dimer, Quantitative 956.77H, Anion Gap 5L, Glomerular Filtration Rate > 60.0, Calcium Level 8.6L, Ferritin 543H, Total Bilirubin 0.4, Direct Bilirubin 0.2, Aspartate Amino Transf (AST/SGOT) 46H, Alanine Aminotransferase (ALT/SGPT) 77, Alkaline Phosphatase 94, C-Reactive Protein, Quantitative 3.64H, AP-Xql-N-Type Natriuretic Peptide 51, Total Protein 6.2L, Albumin 2.5L, Albumin/Globulin Ratio 0.7, Procalcitonin 0.14 03/21/20 11:37: Bedside Glucose (Misc Panel) 276H CBC/BMP Laboratory Tests 03/21/20 06:43 FSBS Laboratory Tests Test 03/20/20 17:36 03/20/20 21:00 03/21/20 11:37 Range/Units Bedside Glucose (Misc Panel) 238 195 276 80-115 MG/DL Microbiology Microbiology 03/16/20 Blood Culture - Preliminary, Resulted No Growth after 72 hours. All specime... 03/16/20 Blood Culture - Preliminary, Resulted No Growth after 72 hours. All specime... Discharge Medications Scheduled Cefdinir (Cefdinir) 300 Mg Capsule, 300 MG PO BID . Doxycycline Hyclate (Doxycycline Hyclate) 100 Mg Tablet, 100 MG PO BID . Prednisone (Prednisone) 10 Mg Tablet, 10 MG PO TAPER Take 4 tabs daily x 3 days, then 3 tabs daily x 3 days, then 2 tabs daily x 3 days, then 1 tab daily x 3 days and stop. Scheduled PRN Acetaminophen (Tylenol Extra Strength) 500 Mg Tablet, 500 MG PO Q6H PRN for PAIN / FEVER, (Reported) Allergies Coded Allergies: No Known Allergies (Verified Allergy, Unknown, 03/16/20) RACHEL GARCIA MD Mar 21, 2020 13:41
[2020-03-21 14:17] LABS: HEMOGLOBIN A1c 7.3 %
== END 2020-03-21 16:25 | disposition home or self-care (01) | DRG 137 ==
LOC: M ED 20:56 → M ED INP 03-17 00:44 → M 4MAIN 03-17 13:01
PROVIDERS: ADMIT Family Medicine; ATTEND Internal Medicine
DX: U07.1 COVID-19 (principal); J96.01 Acute respiratory failure with hypoxia; J12.89 Other viral pneumonia; E11.9 Type 2 diabetes mellitus without complications; I10 Essential (primary) hypertension